=== PATIENT | female | born 1970 | race Caucasian/White ===

== ENCOUNTER 2021-08-12 20:48 | Inpatient (IN) ==
[2021-08-13] MEDS ORDERED: Naloxone 0.4 MG/ML INJ IVP PRN (00:57)
[2021-08-13] MEDS ORDERED: Ondansetron 4 MG/2 ML VIAL IVP PRN (00:57)
[2021-08-13] MEDS ORDERED: methylPREDNISolone 125 MG/2 ML VIAL IVP ONE (01:00)
[2021-08-13] MEDS: Acetaminophen 325 MG TABLET PO PRN (01:22)
[2021-08-13] MEDS: Ipratropium/Albuterol Neb 3 ML IH SCH ×5 (03:44→21:20)
[2021-08-13 06:57] LABS: Hematocrit 37.7 % (35.3-44.9); Hemoglobin 12.4 g/dL (11.5-15.4); Mean Corpuscular HGB Conc 32.9 g/dL (31.6-35.5); Mean Corpuscular Hemoglobin 31.6 pg (28.0-33.3); Mean Corpuscular Volume 95.9 fL (83.0-100.0); Mean Platelet Volume 10.5 fL (9.4-12.4); Platelet Count 229 K/mcL (140-400); Red Blood Count 3.93 M/mcL (3.82-4.97); Red Cell Distribution Width 15.4 % (11.5-14.5); White Blood Count 10.7 K/mcL (4.3-11.1)
[2021-08-13 07:12] LABS: INR 1.3; Prothrombin Time 14.6 Seconds (9.4-12.1)
[2021-08-13 07:20] LABS: BUN/Creatinine Ratio 14 (6-26); Blood Urea Nitrogen 9 mg/dL (6-20); Carbon Dioxide 31 mEq/L (23-29); Chloride 96 mEq/L (98-107); Glucose 329 mg/dL (70-105); Magnesium 1.6 mg/dL (1.6-2.6); Osmolality,Calculated 287 (280-300); Phosphorous 2.5 mg/dL (2.7-4.5); Potassium 3.9 mEq/L (3.5-5.1); Sodium 133 mEq/L (136-145); eGFR For African Americans > 60 (> 60); eGFR For Non-African Americans > 60 (> 60)
[2021-08-13] MEDS: Budesonide/Formoterol 160/4.5 1 PUFF INH IH SCH ×2 (07:58→21:20)
[2021-08-13] MEDS ORDERED: WHEAT DEXTRIN PO PRN (08:10)
[2021-08-13] MEDS ORDERED: Furosemide 20 MG TABLET PO PRN (08:10)
[2021-08-13] MEDS ORDERED: Gabapentin 300 MG CAPSULE PO PRN (08:10)
[2021-08-13] MEDS ORDERED: polyethylene glycoL 3350 17 GM POWD.PACK PO PRN (08:10)
[2021-08-13] MEDS: Chlorhexidine Rinse 15 ML MOUTHWASH MM SCH ×2 (08:12→20:23)
[2021-08-13] MEDS: Insulin LISPRO 300 UNITS/3 ML VIAL SUBQ SCH ×4 (08:13→20:23)
[2021-08-13] MEDS ORDERED: Tiotropium 10 INH DOSE IH ONE (08:55)
[2021-08-13] MEDS ORDERED: Insulin DETEMIR 100 UNIT/ML X5UNITS SUBQ SCH (09:00)
[2021-08-13] MEDS: *HR* SitaGLIPtin 25 MG TABLET PO SCH (09:36)
[2021-08-13] MEDS: lisinopriL 10 MG TABLET PO SCH (09:37)
[2021-08-13] MEDS: Aspirin 81 MG TAB.CHEW PO SCH (09:37)
[2021-08-13] MEDS: Ranolazine 500 MG TAB.ER.12H PO SCH ×2 (09:38→20:21)
[2021-08-13] MEDS: Famotidine 20 MG TABLET PO SCH (09:38)
[2021-08-13] MEDS ORDERED: Tiotropium 10 INH DOSE IH SCH (10:00)
[2021-08-13] MEDS: MethylPREDNISolone 40 MG/ML VIAL IVP SCH ×2 (10:29→16:44)
[2021-08-13] MEDS ORDERED: *HR* Dextrose 50 % in Water (Syg) 50 ML SYRINGE IVP PRN (12:06)
[2021-08-13] MEDS ORDERED: D5% in Water 1,000 ML IVC PRN (12:06)
[2021-08-13] MEDS ORDERED: Dextrose Gel 15 GM/37.5 ML TUBE PO PRN ×2 (12:06)
[2021-08-13] MEDS: Nicotine 14 MG PATCH.TD24 TD SCH (12:23)
[2021-08-13] MEDS: Azithromycin 500 MG in 0.9 % Sodium Chloride 250 ML IVPB SCH (12:24)
[2021-08-13] MEDS ORDERED: Insulin DETEMIR 100 UNIT/ML per UNIT SUBQ ONE (21:00)
[2021-08-13] MEDS ORDERED: Insulin LISPRO 300 UNITS/3 ML VIAL SUBQ SCH (21:00)
[2021-08-14] MEDS: MethylPREDNISolone 40 MG/ML VIAL IVP SCH ×3 (00:29→16:03)
[2021-08-14] MEDS: rOPINIRole 1 MG TABLET PO SCH ×2 (01:11→19:48)
[2021-08-14] MEDS: Ipratropium/Albuterol Neb 3 ML IH SCH ×6 (01:18→20:40)
[2021-08-14] MEDS: *HR* Enoxaparin 40 MG/0.4 ML SYRINGE SQ SCH (05:43)
[2021-08-14] MEDS: Insulin LISPRO 300 UNITS/3 ML VIAL SUBQ SCH ×6 (06:01→19:50)
[2021-08-14] MEDS ORDERED: Insulin LISPRO 300 UNITS/3 ML VIAL SUBQ ONE ×2 (07:23→07:40)
[2021-08-14] MEDS: Aspirin 81 MG TAB.CHEW PO SCH (07:56)
[2021-08-14] MEDS: Nicotine 14 MG PATCH.TD24 TD SCH (07:56)
[2021-08-14] MEDS: Chlorhexidine Rinse 15 ML MOUTHWASH MM SCH ×2 (07:56→19:49)
[2021-08-14] MEDS: Famotidine 20 MG TABLET PO SCH (07:56)
[2021-08-14] MEDS: *HR* SitaGLIPtin 25 MG TABLET PO SCH (07:57)
[2021-08-14] MEDS: Ranolazine 500 MG TAB.ER.12H PO SCH ×2 (07:57→19:48)
[2021-08-14] MEDS: lisinopriL 10 MG TABLET PO SCH (07:58)
[2021-08-14 08:23] LABS: Basophils % 0.2 %; Hematocrit 36.7 % (35.3-44.9); Immature Granulocytes % 2.5 % (0-4); Lymphocytes # 1.3 K/mcL (0.6-4.6); Lymphocytes % 6.9 %; Mean Corpuscular HGB Conc 32.7 g/dL (31.6-35.5); Mean Corpuscular Hemoglobin 31.7 pg (28.0-33.3); Mean Corpuscular Volume 97.1 fL (83.0-100.0); Mean Platelet Volume 10.6 fL (9.4-12.4); Monocytes # 0.5 K/mcL (0.0-1.3); Monocytes % 2.5 %; Neutrophils # 16.9 K/mcL (1.6-8.9); Platelet Count 278 K/mcL (140-400); Red Blood Count 3.78 M/mcL (3.82-4.97); Red Cell Distribution Width 15.1 % (11.5-14.5); Segmented Neutrophils % 87.9 %; White Blood Count 19.2 K/mcL (4.3-11.1)
[2021-08-14] MEDS: Budesonide/Formoterol 160/4.5 1 PUFF INH IH SCH ×2 (08:24→20:41)
[2021-08-14 08:48] LABS: BUN/Creatinine Ratio 20 (6-26); Blood Urea Nitrogen 15 mg/dL (6-20); Calcium 9.1 mg/dL (8.6-10.3); Carbon Dioxide 29 mEq/L (23-29); Chloride 93 mEq/L (98-107); Glucose 430 mg/dL (70-105); Osmolality,Calculated 291 (280-300); Potassium 3.4 mEq/L (3.5-5.1); Sodium 131 mEq/L (136-145); eGFR For African Americans > 60 (> 60); eGFR For Non-African Americans > 60 (> 60)
[2021-08-14] MEDS ORDERED: Insulin DETEMIR 100 UNIT/ML X5UNITS SUBQ SCH (09:00)
[2021-08-14] MEDS ORDERED: predniSONE 20 MG TABLET PO SCH (09:00)
[2021-08-14] MEDS: Insulin DETEMIR 100 UNIT/ML X5UNITS SUBQ SCH ×2 (09:26→19:49)
[2021-08-14] MEDS: Azithromycin 500 MG in 0.9 % Sodium Chloride 250 ML IVPB SCH (12:19)
[2021-08-14] MEDS ORDERED: Acetaminophen/Butalbital/CaffeineTABLET PO PRN (14:01)
[2021-08-14 14:15] LABS: Estimated Average Glucose 148 mg/dl; Hemoglobin A1C 6.8 %
[2021-08-14] MEDS ORDERED: ROPINIROLE HCL 0.5 MG PO SCH (21:00)
[2021-08-15] MEDS: MethylPREDNISolone 40 MG/ML VIAL IVP SCH ×2 (00:06→09:24)
[2021-08-15] MEDS: Ipratropium/Albuterol Neb 3 ML IH SCH ×3 (00:50→07:42)
[2021-08-15 05:06] LABS: Basophils % 0.3 %; Hematocrit 33.1 % (35.3-44.9); Hemoglobin 10.8 g/dL (11.5-15.4); Lymphocytes # 1.5 K/mcL (0.6-4.6); Lymphocytes % 9.9 %; Mean Corpuscular HGB Conc 32.6 g/dL (31.6-35.5); Mean Corpuscular Hemoglobin 31.5 pg (28.0-33.3); Mean Corpuscular Volume 96.5 fL (83.0-100.0); Mean Platelet Volume 10.5 fL (9.4-12.4); Monocytes # 0.5 K/mcL (0.0-1.3); Monocytes % 3.3 %; Platelet Count 285 K/mcL (140-400); Red Blood Count 3.43 M/mcL (3.82-4.97); Red Cell Distribution Width 15.5 % (11.5-14.5); Segmented Neutrophils % 82.5 %; White Blood Count 15.3 K/mcL (4.3-11.1)
[2021-08-15] MEDS: *HR* Enoxaparin 40 MG/0.4 ML SYRINGE SQ SCH (05:27)
[2021-08-15] MEDS: Acetaminophen 325 MG TABLET PO PRN (05:31)
[2021-08-15 05:55] LABS: Basophils # 0.1 K/mcL (0.0-0.2); Neutrophils # 12.6 K/mcL (1.6-8.9)
[2021-08-15 06:00] LABS: BUN/Creatinine Ratio 27 (6-26); Blood Urea Nitrogen 18 mg/dL (6-20); Calcium 9.2 mg/dL (8.6-10.3); Carbon Dioxide 29 mEq/L (23-29); Chloride 98 mEq/L (98-107); Glucose 233 mg/dL (70-105); Osmolality,Calculated 287 (280-300); Potassium 4.3 mEq/L (3.5-5.1); Sodium 134 mEq/L (136-145); eGFR For African Americans > 60 (> 60); eGFR For Non-African Americans > 60 (> 60)
[2021-08-15 06:51] VITALS: BP 179/98; PULSE 87; TEMP 97.5
[2021-08-15] MEDS: Budesonide/Formoterol 160/4.5 1 PUFF INH IH SCH (07:42)
[2021-08-15] MEDS: Ranolazine 500 MG TAB.ER.12H PO SCH (09:26)
[2021-08-15] MEDS: lisinopriL 10 MG TABLET PO SCH (09:26)
[2021-08-15] MEDS: *HR* SitaGLIPtin 25 MG TABLET PO SCH (09:26)
[2021-08-15] MEDS: Famotidine 20 MG TABLET PO SCH (09:26)
[2021-08-15] MEDS: Aspirin 81 MG TAB.CHEW PO SCH (09:26)
[2021-08-15] MEDS: Nicotine 14 MG PATCH.TD24 TD SCH (09:27)
[2021-08-15] MEDS: Insulin DETEMIR 100 UNIT/ML X5UNITS SUBQ SCH (09:27)
[2021-08-15] MEDS: Chlorhexidine Rinse 15 ML MOUTHWASH MM SCH (09:27)
[2021-08-15] MEDS: Insulin LISPRO 300 UNITS/3 ML VIAL SUBQ SCH ×2 (09:27→09:28)
[2021-08-15] MEDS: Azithromycin 500 MG in 0.9 % Sodium Chloride 250 ML IVPB SCH (10:10)
[2021-08-15] MEDS ORDERED: Azithromycin 250 MG TABLET PO ONE ×2 (10:27→10:45)
[2021-08-15] MEDS ORDERED: FLU Vac QV 21-22 (6Month+)/PF 0.5 ML SYRINGE IM ONE (11:02)
[2021-08-15 14:30] VITALS: RESP 20
[2021-08-15 14:37] VITALS: O2SAT 96
== END 2021-08-15 11:24 | disposition home or self-care (01) | DRG 133 ==
LOC: INPPIK
PROVIDERS: ADMIT Internal Medicine; ATTEND Internal Medicine